=== PATIENT | male | born 1965 | race Caucasian/White ===

== ENCOUNTER 2017-04-16 13:04 | Day surgery (SDC) | payer BC ==
[2017-04-16] MEDS ORDERED: LACTATED RINGERS 1,000 ML IV ONE (13:30)
[2017-04-16] MEDS ORDERED: MIDAZOLAM 2 MG/2 ML VIAL IVP ONE (14:20)
[2017-04-16] MEDS ORDERED: GLYCOPYRROLATE 1 MG/5 ML VIAL IVP ONE (14:20)
[2017-04-16] MEDS ORDERED: PROPOFOL 200 MG/20 ML VIAL IVP ONE (14:20)
[2017-04-16] MEDS ORDERED: KETAMINE 500 MG/10 ML VIAL IVP ONE (14:20)
[2017-04-16] MEDS ORDERED: SODIUM CHLORIDE 0.9% 10 ML VIAL IV ONE (14:20)
[2017-04-16] MEDS ORDERED: BENZOCAINE/TETRACAINE/BUTAMBEN SPRAY 56 GM TOP ONE (14:30)
[2017-04-16 15:23] VITALS: BP 120/73
== END 2017-04-16 13:05 | disposition home or self-care (01) ==
LOC: SDS 13:04
PROVIDERS: ATTEND Surgery
PROC: 0DB58ZX Excision of Esophagus, Via Natural or Artificial Opening Endoscopic, Diagnostic (ICD-10-PCS; principal; 2017-04-16 14:15)
DX: K22.70 Barrett's esophagus without dysplasia (principal); K21.9 Gastro-esophageal reflux disease without esophagitis; I10 Essential (primary) hypertension; Z90.49 Acquired absence of other specified parts of digestive tract; K44.9 Diaphragmatic hernia without obstruction or gangrene
CPT/HCPCS: 43239; A9270; J7120